=== PATIENT | female | born 1935 | race Caucasian/White ===

== ENCOUNTER 2019-05-25 12:47 | Emergency (ER) | payer MEDICARE ==
[2019-05-25] MEDS ORDERED: HYDROmorphone 0.5 MG/0.5 ML Syringe IM ONE (13:06)
--- NOTE | 2019-05-25 13:12 | EDM.PDOC ---
ED HPI GENERAL MEDICAL PROBLEM - General Chief Complaint: Lower Extremity Injury/Pain Stated Complaint: FALL VIA [place]TH Time Seen by Provider: 05/25/19 13:00 Source of Information: Reports: Patient, EMS, Old Records History Limitations: Reports: No Limitations - History of Present Illness INITIAL COMMENTS - FREE TEXT/NARRATIVE: 83 yo female fell just outside her home today and injured her R hip. Missed a step causing the fall, thinks her slipper caught the stair. EMS transported, patient declined pain meds en route. No other injuries in the fall. Here with family. Was outside for several minutes before her found her. Gets all her care in [facility]. Onset: Today Onset Date: 05/25/19 Onset Time: 12:00 Duration: Minutes:, Constant Location: Reports: Lower Extremity, Right Quality: Reports: Ache Severity: Moderate Improves with: Reports: Rest Worsens with: Reports: Movement Context: Reports: Trauma Associated Symptoms: Reports: Other (is a bit cold) Treatments MATERIALS TECH: Reports: Other (see below) (none) Right Hip Pain Score (Numeric/FACES): 7 - Related Data Allergies Allergy/AdvReac Type Severity Reaction Status Date / Time No Known Allergies Allergy Verified 05/25/19 12:55 Home Meds: Home Meds Apixaban [Eliquis] 05/25/19 [History] Atenolol [Tenormin] 100 mg PO DAILY 05/25/19 [History] Clopidogrel [Plavix] 75 mg PO DAILY 05/25/19 [History] DULoxetine [Cymbalta] 20 mg PO DAILY 05/25/19 [History] Losartan [Cozaar] 50 mg PO DAILY 05/25/19 [History] Nabumetone [Relafen] 500 mg PO BID 05/25/19 [History] Nitroglycerin 0.4 mg SL ASDIRECTED 05/25/19 [History] amLODIPine Besylate [Amlodipine Besylate] 05/25/19 [History] hydroCHLOROthiazide [Hydrochlorothiazide] 12.5 mg PO DAILY 05/25/19 [History] predniSONE [Prednisone] 5 mg PO DAILY 05/25/19 [History] Past Medical History HEENT History: Reports: Cataract, Hard of Hearing, Impaired Vision Other HEENT History: wears glasses Cardiovascular History: Reports: Afib, CAD, High Cholesterol, Hypertension Gastrointestinal History: Reports: Cholelithiasis, Hiatal Hernia Genitourinary History: Reports: Other (See Below) [employer] History: Reports: Musculoskeletal History: Reports: Arthritis, Back Pain, Chronic Hematologic History: Reports: Anemia, Blood Transfusion(s) Oncologic (Cancer) History: Reports: Colon Other Oncologic History: colon tumor - Infectious Disease History Infectious Disease History: Reports: Chicken Pox, Measles, Mumps - Past Surgical History HEENT Surgical History: Reports: Cataract Surgery Cardiovascular Surgical History: Reports: Coronary Artery Stent, Percutaneous Transluminal Angioplasty GI Surgical History: Reports: Appendectomy, Cholecystectomy, Colon, Colonoscopy , Hernia Repair/Other Other GI Surgeries/Procedures: large and small resection Female Surgical History: Reports: Hysterectomy, Other (See Below) Other Female Surgeries/Procedures: "bladder tuck" Musculoskeletal Surgical History: Reports: Arthroscopic Knee Review of Systems - Review of Systems Review Of Systems: See Below Constitutional: Reports: No Symptoms Eyes: Reports: No Symptoms Ears: Reports: No Symptoms Nose: Reports: No Symptoms Mouth/Throat: Reports: No Symptoms Respiratory: Reports: No Symptoms Cardiovascular: Reports: No Symptoms GI/Abdominal: Reports: No Symptoms Musculoskeletal: Reports: Joint Pain (R hip) Skin: Reports: No Symptoms Neurological: Reports: No Symptoms ED EXAM, GENERAL - Physical Exam Exam: See Below Exam Limited By: No Limitations General Appearance: Alert, WD/WN Eye Exam: Bilateral Eye: EOMI, Normal Inspection, PERRL Ears: Normal External Exam, Normal Canal, Hearing Grossly Normal Ear Exam: Bilateral Ear: Auricle Normal, Canal Normal Nose: Normal Inspection, No Blood Throat/Mouth: Normal Inspection, Normal Lips, Normal Oropharynx, Normal Voice, No Airway Compromise Head: Atraumatic, Normocephalic Neck: Normal Inspection Respiratory/Chest: No Respiratory Distress, Lungs Clear, Normal Breath Sounds, No Accessory Muscle Use Cardiovascular: Regular Rate, Rhythm, No Edema GI/Abdominal: Normal Bowel Sounds, Soft, Non-Tender, No Distention Extremities: No Pedal Edema, Limited Range of Motion (due to pain), Other (R leg externally rotated.). No: Normal Range of Motion, Non-Tender, Pedal Edema Neurological: Alert, Oriented, CN II-XII Intact, Normal Cognition, No Motor/ Sensory Deficits Psychiatric: Normal Affect, Normal Mood Skin Exam: Warm, Dry, Intact, Normal Color, No Rash Course - Vital Signs Text/Narrative:: Daigle Crowley called @ 1347h, Dr. De Luna accepted @ 1405h Last Recorded V/S: Last Vital Signs Temp 35.0 C L 05/25/19 12:54 Pulse 78 05/25/19 14:30 Resp 16 05/25/19 14:30 BP 128/70 05/25/19 14:30 Pulse Ox 90 L 05/25/19 14:30 - Orders/Labs/Meds Orders: Active Orders 24 hr Category Date Time Status Emmanuel Catheter Insertion [Insert Urinary Catheter] [OM. Care 05/25/19 13:45 Ordered PC] Q24H Urinary Catheter Assessment [RC] ASDIRECTED Care 05/25/19 13:44 Active Hip Min 2V or 3V w Pelvis Rt [CR] Stat Exams 05/25/19 13:04 Taken Lactated Ringers [Ringers, Lactated] 1,000 ml Med 05/25/19 13:45 Active IV ASDIRECTED Medication Orders Lactated Ringer's (Ringers, Lactated) 1,000 mls @ 125 mls/hr IV ASDIRECTED SHARON Last Admin: 05/25/19 14:04 Dose: 125 mls/hr Labs: Laboratory Tests 05/25/19 Range/Units 14:29 Urine Color Yellow (YELLOW) Urine Appearance Slightly cloudy A (CLEAR) Urine pH 7.0 (5.0-8.0) Ur Specific [place] 1.015 (1.008-1.030) Urine Protein Negative (NEGATIVE) mg/dL Urine Glucose (UA) Negative (NEGATIVE) mg/dL Urine Ketones Negative (NEGATIVE) mg/dL Urine Occult Blood Negative (NEGATIVE) Urine Nitrite Negative (NEGATIVE) Urine Bilirubin Negative (NEGATIVE) Urine Urobilinogen 0.2 (0.2-1.0) EU/dL Ur Leukocyte Esterase Negative (NEGATIVE) Urine RBC Not seen (0-5) Urine WBC 0-5 (0-5) Ur Epithelial Cells Not seen Amorphous Sediment Many Urine Bacteria Not seen Urine Mucus Rare Meds: Medications Generic Name Dose Route Start Last Admin Trade Name Freq PRN Reason Stop Dose Admin Lactated Ringer's 1,000 mls @ 125 mls/hr 05/25/19 13:45 05/25/19 14:04 Ringers, Lactated IV 125 mls/hr ASDIRECTED SHARON Administration Discontinued Medications Generic Name Dose Route Start Last Admin Trade Name Freq PRN Reason Stop Dose Admin Hydromorphone HCl 0.5 mg 05/25/19 13:06 05/25/19 13:12 Dilaudid IM 05/25/19 13:07 0.5 mg ONETIME ONE Administration Hydromorphone HCl 0.5 mg 05/25/19 14:23 05/25/19 14:26 Dilaudid IVPUSH 05/25/19 14:24 0.5 mg ONETIME ONE Administration - Radiology Interpretation Free Text/Narrative:: R hip and pelvis X-rays-R femoral neck fx Departure - Departure Time of Disposition: 15:15 Disposition: DC/Tfer to Acute Hospital 02 Condition: Fair Clinical Impression: Femoral neck fracture Qualifiers: Encounter type: initial encounter Fracture type: closed Laterality: right Qualified Code(s): S72.001A - Fracture of unspecified part of neck of right femur, initial encounter for closed fracture - Discharge Information *PRESCRIPTION DRUG MONITORING PROGRAM REVIEWED*: No *COPY OF PRESCRIPTION DRUG MONITORING REPORT IN PATIENT RAUL: No Referrals: PCP,None [Primary Care Provider] - Forms: ED Department Discharge Sepsis Event Note - Evaluation Sepsis Screening Result: No Definite Risk - Focused Exam Vital Signs: Vital Signs Temp Pulse Resp BP Pulse Ox 05/25/19 14:30 78 16 128/70 90 L 05/25/19 12:54 35.0 C L 75 17 134/91 H 91 L 05/25/19 12:49 35.0 C L 75 17 134/91 H 91 L Date Exam was Performed: 05/25/19 Time Exam was Performed: 14:54 - My Orders Last 24 Hours: My Active Orders 05/25/19 13:04 Hip Min 2V or 3V w Pelvis Rt [CR] Stat 05/25/19 13:44 Urinary Catheter Assessment [RC] ASDIRECTED 05/25/19 13:45 Emmanuel Catheter Insertion [Insert Urinary Catheter] [OM.PC] Q24H Lactated Ringers [Ringers, Lactated] 1,000 ml IV ASDIRECTED - Assessment/Plan Last 24 Hours: My Active Orders 05/25/19 13:04 Hip Min 2V or 3V w Pelvis Rt [CR] Stat 05/25/19 13:44 Urinary Catheter Assessment [RC] ASDIRECTED 05/25/19 13:45 Emmanuel Catheter Insertion [Insert Urinary Catheter] [OM.PC] Q24H Lactated Ringers [Ringers, Lactated] 1,000 ml IV ASDIRECTED
[2019-05-25] MEDS ORDERED: Lactated Ringers 1,000 ML IV SCH (13:45)
[2019-05-25] MEDS ORDERED: HYDROmorphone 0.5 MG/0.5 ML Syringe IVPUSH ONE (14:23)
--- NOTE | 2019-05-26 08:46 | CR ---
Hip Min 2V or 3V w Pelvis Rt CLINICAL HISTORY: Pain FINDINGS: There is a transverse displaced fracture of the right femoral neck. There is abduction of the proximal aspect. Pelvis appears intact. IMPRESSION: Fracture right femoral neck
== END 2019-05-25 15:10 ==
LOC: JP.ED 12:47
DX: S72.001A Fracture of unspecified part of neck of right femur, initial encounter for closed fracture (principal); I25.10 Atherosclerotic heart disease of native coronary artery without angina pectoris; I48.91 Unspecified atrial fibrillation; I10 Essential (primary) hypertension; Z79.899 Other long term (current) drug therapy; Z79.01 Long term (current) use of anticoagulants; Z79.02 Long term (current) use of antithrombotics/antiplatelets; W10.9XXA Fall (on) (from) unspecified stairs and steps, initial encounter
CPT/HCPCS: 51702; 73502; 81001; 96372; 96374; 99285; J1170; J7120; 99284

== ENCOUNTER 2024-01-20 08:39 | Emergency (ER) | payer MEDICARE ==
[2024-01-20] MEDS: Sodium Chloride 0.9% 1,000 ML IV ONE (09:16)
[2024-01-20 09:17] LABS: BASOPHILS ABSOLUTE AUTO 0.04 K/uL (0.00-0.10); BASOPHILS PERCENT AUTO 0.4 % (0.1-1.3); EOSINOPHILS ABSOLUTE AUTO 0.24 K/uL (0.00-0.40); EOSINOPHILS PERCENT AUTO 2.3 % (0.0-5.4); HEMATOCRIT 34.3 % (34.3-46.0); HEMOGLOBIN 11.4 g/dL (11.2-15.5); IMMATURE GRAN ABSOLUTE AUTO 0.05 K/uL (0.00-0.23); IMMATURE GRAN PERCENT AUTO 0.5 % (0.0-0.7); LYMPHOCYTES ABSOLUTE AUTO 0.77 K/uL (0.8-3.3); LYMPHOCYTES PERCENT AUTO 7.4 % (11.4-47.7); MEAN CORPUSCULAR HEMOGLOBIN 29.5 pg (31.6-35.5); MEAN CORPUSCULAR HGB CONC 33.2 g/dL (31.6-35.5); MEAN CORPUSCULAR VOLUME 88.6 fL (81.4-99.0); MONOCYTES ABSOLUTE AUTO 0.82 K/uL (0.20-0.90); MONOCYTES PERCENT AUTO 7.9 % (3.3-12.6); NEUTROPHILS ABSOLUTE AUTO 8.47 K/uL (1.0-7.6); NEUTROPHILS PERCENT AUTO 81.5 % (40.0-78.1); PLATELET COUNT,PLT 242 K/uL (130-375); RED BLOOD CELL COUNT 3.87 M/uL (3.77-5.24); WHITE BLOOD CELL COUNT,WBC 10.4 K/uL (3.2-11.0)
[2024-01-20 09:35] LABS: A/G RATIO 0.8 (1.2-2.2); ALANINE AMINOTRANSFERASE,ALT 23 U/L (12-78); ALBUMIN 2.7 g/dL (3.4-5.0); ALKALINE PHOSPHATASE 137 U/L (46-116); ASPARTATE AMNIOTRANSFERASE,AST 20 U/L (15-37); BILIRUBIN TOTAL 0.5 mg/dL (0.2-1.0); BLOOD UREA NITROGEN,BUN 18 mg/dL (7-18); C-REACTIVE PROTEIN 5.16 mg/dL (<0.50); CALCIUM 8.8 mg/dL (8.5-10.1); CARBON DIOXIDE,CO2 25 mmol/L (21-32); CHLORIDE,CL 100 mmol/L (100-108); EST CRCL DRUG DOSING (CG) 34.23 mL/min; ESTIMATED GFR 55 mL/min (>60); GLUCOSE RANDOM 127 mg/dL (74-106); POTASSIUM,K 4.5 mmol/L (3.6-5.2); SODIUM,NA 136 mmol/L (140-148)
[2024-01-20 09:36] LABS: ANION GAP 15.5 mmol/L (5.0-14.0)
[2024-01-20] MEDS: Sodium Chloride 0.9% 1,000 ML IV STA (12:00)
== END 2024-01-20 13:56 | disposition home or self-care (01) ==
LOC: JP.ED 08:39
DX: K62.5 Hemorrhage of anus and rectum (principal); I10 Essential (primary) hypertension; I25.10 Atherosclerotic heart disease of native coronary artery without angina pectoris; I48.91 Unspecified atrial fibrillation; Z90.49 Acquired absence of other specified parts of digestive tract; Z90.710 Acquired absence of both cervix and uterus; Z95.5 Presence of coronary angioplasty implant and graft; Z79.01 Long term (current) use of anticoagulants; Z79.899 Other long term (current) drug therapy; Z79.52 Long term (current) use of systemic steroids
CPT/HCPCS: 36415; 80053; 85018; 85025; 86140; 86850; 86900; 86901; 96360; 96361; 99283; J7030

== ENCOUNTER 2024-10-30 14:44 | Inpatient (IN) | payer MEDICARE ==
[2024-10-30 16:26] LABS: BASOPHILS PERCENT AUTO 0.5 % (0.1-1.3); EOSINOPHILS ABSOLUTE AUTO 0.07 K/uL (0.00-0.40); EOSINOPHILS PERCENT AUTO 1.9 % (0.0-5.4); IMMATURE GRAN PERCENT AUTO 0.3 % (0.0-0.7); LYMPHOCYTES ABSOLUTE AUTO 0.71 K/uL (0.8-3.3); LYMPHOCYTES PERCENT AUTO 19.4 % (11.4-47.7); MONOCYTES ABSOLUTE AUTO 0.60 K/uL (0.20-0.90); MONOCYTES PERCENT AUTO 16.4 % (3.3-12.6); NEUTROPHILS ABSOLUTE AUTO 2.25 K/uL (1.0-7.6); NEUTROPHILS PERCENT AUTO 61.5 % (40.0-78.1); PLATELET COUNT,PLT 249 K/uL (130-375); RED BLOOD CELL COUNT 3.64 M/uL (3.77-5.24); WHITE BLOOD CELL COUNT,WBC 3.7 K/uL (3.2-11.0)
[2024-10-30 16:31] LABS: BASOPHILS ABSOLUTE AUTO 0.02 K/uL (0.00-0.10); IMMATURE GRAN ABSOLUTE AUTO 0.01 K/uL (0.00-0.23)
[2024-10-30 16:43] LABS: BLOOD UREA NITROGEN,BUN 15.0 mg/dL (7-18); CARBON DIOXIDE,CO2 28.0 mmol/L (21-32); CHLORIDE,CL 100.0 mmol/L (100-108); CREATININE 0.6 mg/dL (0.6-1.0); EST CRCL DRUG DOSING (CG) 54.4 mL/min; ESTIMATED GFR 87.0 mL/min (>60); GLUCOSE RANDOM 132.0 mg/dL (74-106); POTASSIUM,K 4.2 mmol/L (3.6-5.2); SODIUM,NA 134.0 mmol/L (140-148)
[2024-10-30] MEDS ORDERED: Sodium Chloride 0.9% 10 ML Syringe FLUSH PRN (20:27)
[2024-10-30] MEDS ORDERED: Ondansetron 4 MG/2 ML SDV IV PRN (20:27)
[2024-10-30] MEDS: Diltiazem 180 MG Cap.CD PO SCH (21:19)
[2024-10-31 06:08] LABS: PLATELET COUNT,PLT 218.0 K/uL (130-375); RED BLOOD CELL COUNT 4.24 M/uL (3.77-5.24); WHITE BLOOD CELL COUNT,WBC 4.2 K/uL (3.2-11.0)
[2024-10-31 06:29] LABS: BLOOD UREA NITROGEN,BUN 10.0 mg/dL (7-18); CARBON DIOXIDE,CO2 28.0 mmol/L (21-32); CHLORIDE,CL 100.0 mmol/L (100-108); CREATININE 0.5 mg/dL (0.6-1.0); EST CRCL DRUG DOSING (CG) 67.38 mL/min; ESTIMATED GFR 91.0 mL/min (>60); GLUCOSE RANDOM 96.0 mg/dL (74-106); POTASSIUM,K 3.7 mmol/L (3.6-5.2); SODIUM,NA 134.0 mmol/L (140-148)
[2024-10-31] MEDS: Potassium Chloride 20 MEQ Tab.ER PO SCH (08:13)
[2024-10-31] MEDS: Ondansetron 4 MG Tab.DIS PO PRN (13:29)
[2024-11-01 05:49] LABS: PLATELET COUNT,PLT 220.0 K/uL (130-375); RED BLOOD CELL COUNT 4.17 M/uL (3.77-5.24); WHITE BLOOD CELL COUNT,WBC 4.5 K/uL (3.2-11.0)
== END 2024-11-01 13:02 | disposition home health service (06) | DRG 378 ==
LOC: JP.ED 14:44 → JP.MS 19:30
PROVIDERS: ADMIT Nurse Practitioner; ATTEND Internal Medicine
PROC: 30233N1 Transfusion of Nonautologous Red Blood Cells into Peripheral Vein, Percutaneous Approach (ICD-10-PCS; principal; 2024-10-30)
DX: K92.2 Gastrointestinal hemorrhage, unspecified (principal); D62 Acute posthemorrhagic anemia; H91.90 Unspecified hearing loss, unspecified ear; H54.7 Unspecified visual loss; I48.91 Unspecified atrial fibrillation; I25.10 Atherosclerotic heart disease of native coronary artery without angina pectoris; K92.1 Melena; D50.9 Iron deficiency anemia, unspecified; M19.90 Unspecified osteoarthritis, unspecified site; M54.9 Dorsalgia, unspecified; G89.29 Other chronic pain; Z96.649 Presence of unspecified artificial hip joint; Z85.038 Personal history of other malignant neoplasm of large intestine; Z87.81 Personal history of (healed) traumatic fracture; Z98.49 Cataract extraction status, unspecified eye; I10 Essential (primary) hypertension; Z95.5 Presence of coronary angioplasty implant and graft; E78.00 Pure hypercholesterolemia, unspecified; Z79.01 Long term (current) use of anticoagulants; Z79.02 Long term (current) use of antithrombotics/antiplatelets; Z79.899 Other long term (current) drug therapy; Z90.49 Acquired absence of other specified parts of digestive tract; Z90.710 Acquired absence of both cervix and uterus
CPT/HCPCS: 36415; 36430; 80048; 82272; 83605; 83735; 85018; 85025; 85027; 86850; 86900; 86901; 86920; 86922; 99222; 99232; 99238; 99285; A9270-GY; P9016; Q0162